=== PATIENT | male | born 1965 | race Two or more races ===

== ENCOUNTER 2017-02-19 23:58 | Emergency (ER) | payer OTHER ==
[~2017-02-19] VITALS: Ht 157.5 cm; Wt 79.4 kg
[2017-02-20 01:11] VITALS: BP 121/81
== END 2017-02-20 02:56 | disposition home or self-care (01) ==
LOC: ER 02-20 00:02
DX: J40 Bronchitis, not specified as acute or chronic (principal)

== ENCOUNTER 2023-03-31 13:57 | Emergency (ER) | payer MEDICAID, OTHER ==
[~2023-03-31] VITALS: Ht 165.1 cm; Wt 78.0 kg
[~2023-03-31 13:57] MED LIST: METF-372 PO
[2023-03-31 15:02] VITALS: TEMP 97.8; O2SAT 97
[2023-03-31] MEDS: MORPHINE SULFATE 4 MG/ML SYR/VIAL IM ONE (15:30)
[2023-03-31] MEDS ORDERED: MELO7.5T7 PO (15:31)
[2023-03-31] MEDS ORDERED: ACET500T58 PO (15:31)
[2023-03-31 15:50] VITALS: BP 115/67; PULSE 78; RESP 18
== END 2023-03-31 15:52 | disposition home or self-care (01) ==
LOC: ER 13:57
DX: R07.89 Other chest pain (principal); Z79.899 Other long term (current) drug therapy; V89.2XXA Person injured in unspecified motor-vehicle accident, traffic, initial encounter; Y93.89 Activity, other specified; Y92.410 Unspecified street and highway as the place of occurrence of the external cause; Y99.8 Other external cause status
CPT/HCPCS: 71046; 96372; 99283; J2270